=== PATIENT | female | born 1960 | race Caucasian/White ===

== ENCOUNTER 2017-05-22 08:32 | Observation (INO) ==
[2017-05-22] MEDS ORDERED: Tdap (ADACEL) Vaccine 0.5 ML IM ONE (09:03)
--- NOTE | 2017-05-22 09:03 | Emergency Department Note ---
Disposition Clinical Impression: Syncope Qualifiers: Syncope type: unspecified Qualified Code(s): R55 - Syncope and collapse Disposition: Admitted As Inpatient Condition: Good Referrals: Rafael Krause DO [Primary Care Provider] - Forms: ED Satisfaction Letter General Adult HPI - General Chief complaint: ED Syncope Stated complaint: Syncopal episode x3 Time Seen by Provider: 05/22/17 08:45 Source: patient, family Limitations: no limitations - History of Present Illness HPI Narrative: Patient was well she will up this morning, drove 15 minutes to work without incident. While at work, she had 3 syncopal episodes in fairly rapid succession , over the course of 30 minutes or so. All of the episodes were the same. No prodrome, she did not feel lightheaded or dizzy, was doing a nonexertional task at work and the next thing she knew she was waking up on the floor. She has a mild headache now, did not have a headache in between episodes. No chest pain, palpitations or shortness of breath. No neck or back pain other than some discomfort to her tailbone from one of her falls. She has a small abrasion/ laceration on her elbow, cannot recall her last tetanus. No numbness or weakness in arms or legs. No abdominal pain. No symptoms of GI bleeding or other abnormal bleeding. No fever or urinary tract symptoms. She was not incontinent with these episodes. No seizure activity was witnessed by bystanders at work, no classic postictal state is described. No alcohol this morning. She has not had similar episodes in the past. She has no history of any form of heart disease. She did have a mother and a 48-year-old brother who suddenly with "massive heart attacks." Pain Scale: 3 - Related Data Allergies Allergy/AdvReac Type Severity Reaction Status Date / Time No Known Allergies Allergy Verified 05/22/17 08:34 All systems ED: reviewed and negative except as stated. Past Medical History - Past Medical History Medical history: Reports: kidney stones Psychiatric history: Reports: no psych history [employer] history: Reports: no [employer] history - Social History Smoking Status: Never smoker Smokeless Tobacco Status: No Drug use: Reports: none Physical Exam Vital signs noted, please see nurses notes. General: Well-developed, well-nourished patient lying in bed who appears non- toxic. Head: Atraumatic, normocephalic, no signs of basilar skull fracture. Eyes: No ocular trauma. No proptosis. Extraocular motions intact. Sclerae anicteric, conjunctiva pink. ENT: No facial or dental trauma. Neck: No midline tenderness, no stepoff or crepitus. Meets NEXUS criteria for clinical C-spine clearance. Back: No midline tenderness, no stepoff or crepitus. Chest: No crepitus or ecchymosis. Heart: Regular rate and rhythm. No rubs, murmurs or gallops. Lungs: Normal respiratory pattern without respiratory distress. Lungs clear to auscultation bilaterally. Abdomen: Soft, non-tender, non-distended, no guarding or peritoneal signs. No seatbelt sign. Pelvis: Stable, non-tender. Extremities: No deformity, no bony tenderness to palpation. No pain with passive ranging of all joints in the extremities. Small superficial 1 cm laceration adjacent to the right elbow, no active bleeding. Radial pulses 2+ and symmetrical bilaterally. Neurologic: Awake, alert, oriented with normal speech and mental status, GCS 15. Pupils 3 mm, equal, round, reactive to light. Moves all extremities with 5/ 5 strength, light touch sensation normal and symmetrical in all extremities. No clinical evidence of intoxication. No altered level of alertness. No focal deficits or lateralizeing signs. Psychiatric: Normal mood and affect. Skin: Warm and dry. Small laceration as noted above. - General Limitations: no limitations General appearance: alert, in no apparent distress Course Vital Signs Temperature 97.5 F L 05/22/17 08:34 Pulse Rate 82 05/22/17 08:34 Respiratory Rate 18 05/22/17 08:34 Blood Pressure 107/69 05/22/17 08:34 O2 Sat by Pulse Oximetry 100 05/22/17 08:34 Temperature 97.5 F L 05/22/17 08:34 Pulse Rate 68 05/22/17 09:26 Respiratory Rate 16 05/22/17 09:26 Blood Pressure 106/67 05/22/17 09:26 O2 Sat by Pulse Oximetry 100 05/22/17 09:26 Oxygen Delivery Oxygen Delivery Room Air Medical Decision Making - [facility] Narrative Medical decision making narrative: Patient is in the farias area as to whether or not it would be safe to proceed with an outpatient workup. I am concerned about her age, which is in a farias area, her recurrent syncope (3 episodes over about 30 minutes), and her brother who had a sudden cardiac at age 48. While I think the likelihood of a dangerous etiology for her syncope is fairly low, I do think that she warrants inpatient observation and cardiac evaluation before she goes home. I discussed with the hospitalist, who agrees. - Lab Data Result diagrams: 05/22/17 09:15 05/22/17 09:15 Lab Results 05/22/17 05/22/17 05/22/17 Range/Units 09:06 09:15 09:15 Hgb 14.1 (11.5-15.4) g/dL Hct 41.4 (35.3-44.9) % Sodium 138 (136-145) mEq/L Potassium 4.6 H (3.5-4.5) mEq/L Chloride 105 (98-109) mEq/L Carbon Dioxide 23 (19-29) mEq/L BUN 15 (7-20) mg/dL Creatinine 0.66 (0.57-1.11) mg/dL Est GFR ( Amer) > 60 (> 60) Est GFR (Non-Af Amer) > 60 (> 60) BUN/Creatinine Ratio 23 (6-26) Glucose 88 (70-99) mg/dL Calculated Osmolality 286 (280-300) Calcium 9.2 (8.6-10.8) mg/dL Urine Color Yellow (Yellow) Urine Clarity Clear (Clear) Urine pH 6.0 (5.0-8.0) pH Units Ur Specific [place] 1.024 (1.010-1.025) Urine Protein Negative (Neg-Trace) mg/dL Urine Glucose (UA) 250 H (Normal) mg/dL Urine Ketones Negative (Negative) mg/dL Urine Blood Negative (Negative) Urine Nitrite Negative (Negative) Urine Bilirubin Negative (Negative) Urine Urobilinogen Normal (Normal) mg/dL Ur Leukocyte Esterase Negative (Negative) Urine Microscopic RBC 5-15 H (0-3) per hpf Ur Squamous Epith Cells Many H (None-Few) per lpf Calcium Oxalate Crystal Present Urine Bacteria None Seen (None-Few) per hpf Hyaline Casts None Seen (None-Few) per lpf Urine Mucus Few (Few) - EKG Data EKG #1 EKG attestation: Yes I reviewed and interpreted this EKG. EKG shows normal: sinus rhythm (Weight 63, normal intervals and QRS duration. No acute ischemic changes. No evidence of Pnddl-Ffwbfyyvm-Rdesh syndrome or Brugada syndrome. Normal EKG.)
[2017-05-22 09:18] LABS: Bilirubin,Urine Negative (Negative); Blood,Urine Negative (Negative); Color,Urine Yellow (Yellow); Glucose,Urine (UA) 250 mg/dL (Normal); Ketones,Urine Negative (Negative); Leukocyte Esterase,Urine Negative (Negative); Nitrite,Urine Negative (Negative); Protein,Urine Negative (Neg-Trace); Specific Gravity,Urine 1.024 (1.010-1.025); Urobilinogen,Urine Normal (Normal)
[2017-05-22 09:20] LABS: Bacteria,Urine None Seen per hpf (None-Few); Hyaline Casts,Urine None Seen per lpf (None-Few); Squamous Epithelial Cell,Urine Many per lpf (None-Few)
[2017-05-22 09:21] LABS: Hematocrit 41.4 % (35.3-44.9); Hemoglobin 14.1 g/dL (11.5-15.4)
[2017-05-22 09:22] LABS: Clarity,Urine Clear (Clear)
[2017-05-22 09:33] LABS: BUN/Creatinine Ratio 23 (6-26); Blood Urea Nitrogen 15 mg/dL (7-20); Calcium 9.2 mg/dL (8.6-10.8); Carbon Dioxide 23 mEq/L (19-29); Chloride 105 mEq/L (98-109); Glucose 88 mg/dL (70-99); Osmolality,Calculated 286 (280-300); Sodium 138 mEq/L (136-145); eGFR For African Americans > 60 (> 60); eGFR For Non-African Americans > 60 (> 60)
[2017-05-22 09:34] LABS: Potassium 4.6 mEq/L (3.5-4.5)
[2017-05-22 09:37] LABS: Calcium Oxalate Crystals,Urine Present; Mucus,Urine Few (Few)
[2017-05-22] MEDS ORDERED: Naloxone 0.4 MG/ML INJ IVP PRN (10:27)
--- NOTE | 2017-05-22 10:42 | Internal Med History&Physical ---
Date of Encounter: 05/22/17 Time of Encounter: 11:00 Assessment and Plan (1) Syncope Current visit: Yes Status: Acute 56y/o female with no significant who presents with syncopal episode with NO postictal symptoms. Differential diagnoses includes vasovagal vs neurological vs cardiogenic Will place on Tele, get orthostatic BP. Will get a STAT CT brain without contrast since she reported possible hitting her head Will get Carotid doppler US and and routine Echo. Will give gentle IV hydration. Continue close monitoring. Qualifiers: Syncope type: unspecified Qualified Code(s): R55 - Syncope and collapse Internal Medicine - H&P: HPI Chief complaint: Syncope Admitted From: Home Plans for Post Hospital Care: Home History of present illness: Ms. Hendrickson is a 56 year old female with no other past medical history, except for history of renal stones. She was brought in by the Squad today after she passed out at least 2 times at work. Patient reports that she was otherwise doing fine the day before, she woke up this morning to get to work at 6am. She drove to work without any problems. She works for [employer]. She said she had not had breakfast today. 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 She said when she woke up on the floor, her brain felt fuzzy she was not sure if she hit her head. She tried walking back to her chair and when she go to the chair she passed out again and found herself on the floor. Shortly afterwards a coworker found her and asked her if she was okay. She said she continued to feel fuzzy. Subsequently the coworker called the ambulance. Patient denied having chest pain or palpitation during this episode. She denies headache, nausea or vomiting. She denies bladder of bowel incontinence. Patient denies any prior history of syncopal episode. Past Med Surg Social Fam HX - Past Medical History Medical history: kidney stones, other (renal stones) Psychiatric history: no psych history - Past Surgical History Surgical History: hysterectomy, other (gastric bypass, renal stone removal) - Social History Smoking Status: Never smoker Smokeless Tobacco Status: No Drug use: none Occupational status: employed Current living situation: Home, With Family Recent Out of Country Travel Within the Last 8 Weeks: No - Family History Mother Brother Hx Family Cardiac Disorders: Yes Internal Medicine - H&P: Meds Cyclobenzaprine [Flexeril] 10 mg PO Q8H PRN 05/22/17 [History] Fluticasone Propionate Nasal [Flonase] 2 spr NS DAILY PRN 05/22/17 [History] Montelukast [Singulair] 10 mg PO DAILY 05/22/17 [History] Mv,Fe,Min/Lutein [A Thru Z [employer] Tablet] 1 tab PO DAILY 05/22/17 [ History] Tamsulosin [Flomax] 0.4 mg PO DAILY 05/22/17 [History] 3 Allergy/AdvReac Type Severity Reaction Status Date / Time No Known Allergies Allergy Verified 05/22/17 08:34 All Systems PM: A 10-system review of systems was performed and is negative for pertinent findings except as documented above in the HPI. - Constitutional Constitutional: no chills, no fever(s), no night sweats - EENT Eyes: no change in vision, no discharge, no pain, no photophobia Ears: no ear discharge, no ear pain, no tinnitus Nose, mouth and throat: no dysphagia, no nasal discharge, no neck pain, no sore throat - Cardiovascular Cardiovascular ROS IM: no chest pain, no diaphoresis, no dyspnea, no lightheadedness, no palpitations, no syncope - Respiratory Respiratory: no cough, no dyspnea, no wheezing, no excessive phlegm production - Gastrointestinal Gastrointestinal: no abdominal pain, no diarrhea, no hematemesis, no hematochezia, no melena, no nausea, no vomiting - Genitourinary Genitourinary: no change in urinary stream, no dysuria, no flank pain, no hematuria - Musculoskeletal Musculoskeletal ROS IM: no numbness, no tingling - Integumentary Integumentary IM: no rash, no unusual bruising - Neurological Neurological ROS: no confusion, no convulsions, no focal weakness, no numbness, no tingling, no tremor(s) - Hematologic/Lymphatic Hematologic/Lymphatic: no easy bruising - Constitutional Vitals: Temp Pulse Resp BP Pulse Ox 97.5 F L 73 16 106/75 100 05/22/17 08:34 05/22/17 10:00 05/22/17 10:00 05/22/17 10:00 05/22/17 10:00 General appearance: Present: A&O X 3 - Head Head exam: Present: atraumatic, normocephalic - Eye Eye exam: Present: PERRL, conjuntiva pink, sclera anicteric Pupils: Present: PERRL - Neck Neck exam general surgery: Present: supple, trachea midline. Absent: lymphadenopathy - Respiratory Respiratory exam: Present: CTAB. Absent: accessory muscle use, rales, rhonchi, wheezes - Cardiovascular Cardiovascular exam: Present: RRR, +S1, +S2. Absent: diastolic murmur, gallop, rubs, systolic murmur - GI/Abdominal GI/Abdominal exam: Present: normal bowel sounds, soft, no peritoneal signs. Absent: distended, tenderness - Extremities Exam Extremities exam: Present: warm, radial pulses palpable and symmetrical. Absent : calf tenderness, cyanotic, pedal edema - Neurological Exam Neurological exam: Present: CN II-XII intact, oriented X3, no focal deficits. Absent: pronater drift, facial droop, speech deficit - Skin Skin exam: Present: dry, intact Internal Med - H&P Results - Labs CBC & Chem 7: 05/22/17 09:15 05/22/17 09:15 - VTE Reasons for not Prescribing Prophylaxis: Treatment not Indicated - Low risk for VTE
[2017-05-22 10:46] LABS: Magnesium 2.3 mg/dL (1.6-2.6); Phosphorous 3.8 mg/dL (2.3-4.7)
[2017-05-22] MEDS: 0.9 % Sodium Chloride 1,000 ML IVC SCH ×2 (12:18→23:34)
--- NOTE | 2017-05-22 15:06 | Electrocardiograph Report ---
[place] [facility] Test Date: 2017-05-22 Pat Name: Kayley Hendrickson Department: 104 Room: 3B47 Gender: F [employer] Gr[employer] Operator: : [id number] Requested By: Tyler Antonio Order Number: [id number] Reading MD: Duncan Zamora MD Measurements Intervals [place] Rate: 63 P: 64 NE: 169 QRS: 70 QRSD: 87 T: 60 QT: 397 QTc: 404 Interpretive Statements SINUS RHYTHM WARNING: DATA QUALITY MAY AFFECT INTERPRETATION wnl Electronically Signed On 05-22-2017 15:04:20 EST by Duncan Zamora MD
[2017-05-23 06:03] LABS: BUN/Creatinine Ratio 20 (6-26); Blood Urea Nitrogen 13 mg/dL (7-20); Calcium 8.7 mg/dL (8.6-10.8); Carbon Dioxide 24 mEq/L (19-29); Chloride 112 mEq/L (98-109); Chol/HDL Ratio 2.7 (0-4.9); Cholesterol 167 mg/dL (< 200); Glucose 90 mg/dL (70-99); HDL Cholesterol 63 mg/dL (40-59); LDL Cholesterol,Calculated 95 mg/dL (0-99); Osmolality,Calculated 294 (280-300); Sodium 142 mEq/L (136-145); Triglycerides 47 mg/dL (< 150); eGFR For African Americans > 60 (> 60); eGFR For Non-African Americans > 60 (> 60)
[2017-05-23 06:06] LABS: Basophils % 0.4 %; Eosinophils # 0.1 K/mcL (0.0-0.6); Immature Granulocytes % 0.2 % (0-4); Lymphocytes # 1.7 K/mcL (0.6-4.6); Lymphocytes % 33.1 %; Mean Corpuscular HGB Conc 32.4 g/dL (31.6-35.5); Mean Corpuscular Hemoglobin 30.8 pg (28.0-33.3); Mean Corpuscular Volume 94.9 fL (83.0-100.0); Mean Platelet Volume 10.5 fL (9.4-12.4); Monocytes # 0.4 K/mcL (0.0-1.3); Monocytes % 8.5 %; Neutrophils # 2.8 K/mcL (1.6-8.9); Platelet Count 167 K/mcL (140-400); Red Cell Distribution Width 12.5 % (11.5-14.5); Segmented Neutrophils % 55.8 %
--- NOTE | 2017-05-23 15:34 | Internal Med Progress Note ---
Date of Encounter: 05/23/17 Time of Encounter: 11:00 - Assessment and plan (1) Syncope Current Visit: Yes Status: Acute Assessment and plan: With 3 syncopal episodes day prior to presentation. Episodes were not witnessed ; patient reports waking up on the floor at work on 3 separate occasions. Etiology unknown at this time. No obvious infectious or metabolic etiology. Head CT with chronic, small vessel disease. Brain MRI negative for acute infarct or intracranial mass. TTE with PFO. Bilateral carotid Dopplers unremarkable. Does not appear to be seizure as she denies bowel or bladder incontinence, no evidence of biting tongue. EKG with normal sinus rhythm, no prolonged QTC. No arrhythmias noted on telemetry. Orthostatic BPs with a drop noted from lying to standing. Continue IV hydration, EEG pending. Will need about monitor prior to discharge. Qualifiers: Syncope type: unspecified Qualified Code(s): R55 - Syncope and collapse (2) DVT prophylaxis Current Visit: Yes Status: Acute - Subjective Interval history: Seen and examined at bedside. Patient is new to me, information obtained from chart review and patient report. She is complaining of lower back/sacral pain as well as occipital and neck pain also which she suspects is due to her falls from the day before. Otherwise she feels she is back to baseline. No chest pain, no shortness of breath. No syncope, lightheadedness or dizziness. No further falls. No vision changes or paresthesias. - Constitutional Vitals: Temp Pulse Resp BP Pulse Ox 97.3 F L 85 17 122/68 97 05/23/17 14:55 05/23/17 14:55 05/23/17 14:55 05/23/17 14:55 05/23/17 14:55 General appearance: Present: A&O X 3, pleasant, no acute distress - Head Head exam: Present: atraumatic, normocephalic - Eye Eye exam: Present: PERRL, conjuntiva pink, sclera anicteric Pupils: Present: PERRL - Neck Neck exam general surgery: Present: supple, trachea midline. Absent: lymphadenopathy - Respiratory Respiratory exam: Present: CTAB. Absent: accessory muscle use, rales, rhonchi, wheezes - Cardiovascular Cardiovascular exam: Present: RRR, +S1, +S2. Absent: diastolic murmur, gallop, rubs, systolic murmur - GI/Abdominal GI/Abdominal exam: Present: normal bowel sounds, soft, no peritoneal signs. Absent: distended, tenderness - Extremities Exam Extremities exam: Present: warm, radial pulses palpable and symmetrical. Absent : calf tenderness, cyanotic, pedal edema - Neurological Exam Neurological exam: Present: CN II-XII intact, oriented X3, no focal deficits. Absent: pronater drift, facial droop, speech deficit - Skin Skin exam: Present: dry, intact Internal Medicine: Result - Labs CBC & Chem 7: 05/23/17 05:22 05/23/17 05:22 Labs: Short CBC 05/23/17 Range/Units 05:22 WBC 5.0 (4.3-11.1) K/mcL Hgb 12.0 D (11.5-15.4) g/dL Hct 37.0 (35.3-44.9) % Plt Count 167 (140-400) K/mcL Neutrophils # 2.8 (1.6-8.9) K/mcL BMP 05/23/17 05:22 Sodium 142 Potassium 4.0 Chloride 112 H Carbon Dioxide 24 BUN 13 Creatinine 0.64 Glucose 90 Calcium 8.7 - Impressions Impressions Head CT 05/22/17 10:35 IMPRESSION: 1. No acute intracranial abnormality. 2. Few scattered foci of subcortical and periventricular white matter hypoattenuation, felt to represent chronic small vessel ischemic white matter disease. D/ / 05/22/2017 11:25:35 Noah Lewis MD / [facility] Interpreting Provider: Noah Lewis MD Brain MRI 05/23/17 11:07 IMPRESSION: 1. No evidence of an acute infarct or intracranial mass to account for the patient's syncopal episodes. 2. Minimal chronic microvascular white matter ischemic disease is noted supratentorially. D/ / 05/23/2017 14:35:33 Christiano Morrow MD / [facility] Interpreting Provider: Christiano Morrow MD - VTE Reasons for not Prescribing Prophylaxis: Treatment not Indicated - Low risk for VTE Consult Discharge Plan - Plan Referrals: Rafael Krause DO [Primary Care Provider] -
[2017-05-23] MEDS: 0.9 % Sodium Chloride 1,000 ML IVC SCH (17:51)
[2017-05-23] MEDS: *HR* Heparin 5,000 UNIT/ML VIAL SQ SCH (21:26)
[2017-05-24 05:03] LABS: Hematocrit 36.4 % (35.3-44.9); Mean Corpuscular Hemoglobin 31.3 pg (28.0-33.3); Mean Platelet Volume 10.8 fL (9.4-12.4); Platelet Count 150 K/mcL (140-400); Red Blood Count 3.83 M/mcL (3.82-4.97); Red Cell Distribution Width 12.4 % (11.5-14.5)
[2017-05-24 05:21] LABS: BUN/Creatinine Ratio 21 (6-26); Blood Urea Nitrogen 13 mg/dL (7-20); Calcium 8.5 mg/dL (8.6-10.8); Carbon Dioxide 23 mEq/L (19-29); Chloride 111 mEq/L (98-109); Glucose 87 mg/dL (70-99); Osmolality,Calculated 293 (280-300); Potassium 3.8 mEq/L (3.5-4.5); Sodium 142 mEq/L (136-145); eGFR For African Americans > 60 (> 60); eGFR For Non-African Americans > 60 (> 60)
[2017-05-24] MEDS: *HR* Heparin 5,000 UNIT/ML VIAL SQ SCH (05:32)
[2017-05-24] MEDS: 0.9 % Sodium Chloride 1,000 ML IVC SCH (05:34)
--- NOTE | 2017-05-24 14:39 | EEG/EMG/Oth Biometrics Report ---
EEG Procedure Report Date of procedure: 05/24/17 EEG Procedure: Routine EEG Procedure Note: This is a report of a 21 channel bipolar and referential montage EEG. The posterior dominant rhythm of 10 Hz moderate voltage alpha frequencies identified symmetrically in the posterior head regions. This rhythm attenuates symmetrically with eye opening. Hyperventilation is performed and results in some desynchronization and build up however no ictal activity. Periods of drowsiness identified however the subject does not approach stage II sleep. Photic stimulation is performed and does not produce a driving response. The EKG rhythm strip reveals normal sinus rhythm at 72 beats per minute. Impressions: This EEG recording is within normal limits. There is no evidence of epileptiform activity identified during the study. Comment: A normal EEG does not preclude the diagnosis of seizure or epilepsy. If the clinical suspicion for seizure activity is high, serial EEGs were perhaps a prolonged recording may increase the yield. Please correlate clinically.
--- NOTE | 2017-05-24 15:10 | Discharge Summary ---
Date of Encounter: 05/24/17 Time of Encounter: 15:02 - Discharge Diagnosis (1) Syncope Priority: Primary Status: Resolved Comments: With 3 syncopal episodes day prior to presentation. Episodes were not witnessed ; patient reports waking up on the floor at work on 3 separate occasions. Etiology unknown at this time. No obvious infectious or metabolic etiology. Head CT with chronic, small vessel disease. Brain MRI negative for acute infarct or intracranial mass. TTE with PFO. Bilateral carotid Dopplers unremarkable. Does not appear to be seizure as she denies bowel or bladder incontinence, no evidence of biting tongue. EKG with normal sinus rhythm, no prolonged QTC. No arrhythmias noted on telemetry. Orthostatic BPs with a drop noted from lying to standing (possibly from Flomax). EEG with no evidence of epileptiform activity. Encourage adequate hydration, Holter monitor placed prior to discharge. Follow-up with cardiology outpatient. Qualifiers: Syncope type: unspecified Qualified Code(s): R55 - Syncope and collapse (2) Kidney stones Priority: Secondary Status: Chronic Comments: per hx. on Flomax at home. Recommend stopping Flomax due to orthostatic hypotension and syncopal episodes. - Discharge Medications Home Medications: Cyclobenzaprine [Flexeril] 10 mg PO Q8H PRN 05/22/17 [History] Fluticasone Propionate Nasal [Flonase] 2 spr NS DAILY PRN 05/22/17 [History] Montelukast [Singulair] 10 mg PO DAILY 05/22/17 [History] Mv,Fe,Min/Lutein [A Thru Z [employer] Tablet] 1 tab PO DAILY 05/22/17 [ History] Allergies/Adverse Reactions: 3 Allergy/AdvReac Type Severity Reaction Status Date / Time No Known Allergies Allergy Verified 05/22/17 08:34 Procedures/tests Complete & Pending: Procedures Performed prior 72 hours Category Date Time Status CT head/brain wo con [CT] Stat Cat Scan 05/22/17 10:35 Completed CTA chest [CT angio chest] [CT] Stat Cat Scan 05/23/17 15:48 Completed MR head/brain wo con [MR] Routine MRI 05/23/17 11:07 Completed ECG 48 holter monitor setup [ECG] Routine Y 05/24/17 12:12 Completed EV carotid duplex imaging BI Routine Y 05/22/17 10:35 Completed EV echocardiogram Routine Y 05/22/17 10:35 Completed Date of admission: 05/22/17 10:07 Primary care physician: Rafael Krause DO Consults: 05/24/17 10:22 Consult to Interpret Exam [CONS] Routine Consulting Provider: Yris Avila I Consult to Interpret Exam: Interpret EEG Discharging clinician: Portia Zuluaga Anticipated date of discharge: 05/24/17 - Patient Status Disposition: Home, Self-Care Condition: Good Functional capacity at discharge: independent ambulation Overall status at discharge: patient is back to baseline - Discharge Instructions Instructions: Syncope (DC), Hypotension (DC) Follow Up With: Rafael Krause DO [Primary Care Provider] - 05/31/17 9:00 am Deni Jose DO [Partnered Physician] - Additional Instructions: Please call your PCP within 24 hours or the next business day to schedule a follow-up appt [facility] will call you with an appointment within the next week - Diet and Activity Activity: increase activity as tolerated, resume usual activities as tolerated Diet: advance to your usual diet Interval History: Seen and examined at bedside. Patient says she feels back to baseline like to discharge home today. No recurrence of syncope, no lightheadedness or dizziness. Monitor placed prior to discharge. Hospital course: See assessment and plan for hospital course - Time Spent with Patient Total time spent providing and/or coordinating discharge services: - Constitutional Vitals: Temp Pulse Resp BP Pulse Ox 98 F 64 16 123/78 97 05/24/17 10:31 05/24/17 10:31 05/24/17 10:31 05/24/17 10:31 05/24/17 10:31 General appearance: Present: A&O X 3, pleasant, no acute distress - Head Head exam: Present: atraumatic, normocephalic - Eye Eye exam: Present: PERRL, conjuntiva pink, sclera anicteric Pupils: Present: PERRL - Neck Neck exam general surgery: Present: supple, trachea midline. Absent: lymphadenopathy - Respiratory Respiratory exam: Present: CTAB. Absent: accessory muscle use, rales, rhonchi, wheezes - Cardiovascular Cardiovascular exam: Present: RRR, +S1, +S2. Absent: diastolic murmur, gallop, rubs, systolic murmur - GI/Abdominal GI/Abdominal exam: Present: normal bowel sounds, soft, no peritoneal signs. Absent: distended, tenderness - Extremities Exam Extremities exam: Present: warm, radial pulses palpable and symmetrical. Absent : calf tenderness, cyanotic, pedal edema - Neurological Exam Neurological exam: Present: CN II-XII intact, oriented X3, no focal deficits. Absent: pronater drift, facial droop, speech deficit - Skin Skin exam: Present: dry, intact - VTE Reasons for not Prescribing Prophylaxis: Treatment not Indicated - Low risk for VTE
[2017-05-24 15:28] VITALS: BP 120/74
== END 2017-05-24 16:43 | disposition home or self-care (01) ==
LOC: 3BNU 08:32 → EMEROO 08:32 → 3BNU 10:26
PROVIDERS: ADMIT Family Medicine; ATTEND Registered Nurse